=== PATIENT | female | born 1985 | race Hispanic/Latino ===

== ENCOUNTER 2019-04-21 21:08 | Emergency (ER) | payer SELFPAY ==
[2019-04-21 21:34] LABS: #Basophils 0.1 thou/uL (0.0-0.2); #Eosinphils 0.3 thou/uL (0.0-0.7); #Lymphocytes 2.7 thou/uL (1.20-3.40); #Monocytes 0.6 thou/uL (0.11-0.59); #Neutrophils 5.6 thou/uL (1.40-6.50); %Basophils 0.7 % (0.0-1.0); %Eosinophils 2.7 % (0.0-10.0); %Monocytes 6.6 % (0.0-10.0); %Neutrophils 60.9 % (42.0-75.0); Hemoglobin 14.3 g/dL (12.0-16.0); Mean Corpuscular HGB CONC 33.7 g/dL (32.0-36.0); Mean Corpuscular Hemoglobin 29.1 pg (27.0-31.0); Mean Corpuscular Volume 86.1 fL (78.0-98.0); Mean Platelet Volume 7.4 fL (7.4-10.4); Platelet Count 335 thou/uL (130-400); RBC Distribution Width 12.3 % (11.5-14.5); Red Blood Cell (RBC) Count 4.91 mill/uL (4.20-5.40); White Blood Cell (WBC) Count 9.2 thou/uL (4.8-10.8)
[2019-04-21 21:44] LABS: BHCG - Serum Negative (NEGATIVE); Pregs Control Background? CLEAR/WHITE (CLR/WHITE); Pregs Control Bar Appear? YES (CONTROL BAR)
[2019-04-21 21:59] LABS: ALT (SGPT) 61 U/L (8-55); AST (SGOT) 24 U/L (5-34); Albumin 4.5 g/dL (3.5-5.0); Alkaline Phosphatase 92 U/L (40-150); Anion Gap 13 mmol/L (10-20); BUN (Urea Nitrogen) 12 mg/dL (7.0-18.7); Bilirubin, Total 0.3 mg/dL (0.2-1.2); Calc. Creatinine Clearance 0 mL/min (70-130); Calcium 9.6 mg/dL (7.8-10.44); Carbon Dioxide 23 mmol/L (22-29); Chloride 106 mmol/L (98-107); Estimated GFR-MDRD 83; Glucose 128 mg/dL (70-105); Lipase 27 U/L (8-78); Potassium 3.5 mmol/L (3.5-5.1); Protein, Total 7.5 g/dL (6.0-8.3); Sodium 138 mmol/L (136-145)
[2019-04-21 21:59] LABS: Bilirubin Negative (Negative); Blood, Urine Negative (Negative); Clarity Clear (Clear); Glucose, Urine (Dipstick) Normal (Negative); Leukocyte Negative Leu/uL (Negative); Nitrite Negative (Negative); Protein, Urine (Dipstick) Negative (Neg-Trace); Urobilinogen Normal mg/dL (Less than 2)
== END 2019-04-21 22:25 | disposition home or self-care (01) ==
LOC: ERS 21:08
DX: R10.31 Right lower quadrant pain (principal)
CPT/HCPCS: 36415; 80053; 81003; 83690; 84703; 85025; 99284

== ENCOUNTER 2019-05-22 08:36 | Outpatient (CLI) | payer OTHER ==
--- NOTE | 2019-05-22 10:41 | ULT ---
TRANSABDOMINAL PELVIC ULTRASOUND WITH [place]-SCALE AND COLOR-FLOW AND SPECTRAL DOPPLER IMAGING: HISTORY: Infertility. FINDINGS: The uterus is retroverted, measuring 7 x 3.3 x 5.6 cm. The endometrium measures 1.8 cm in thickness. No uterine mass or endometrial fluid is seen. The right ovary measures 4 x 1.9 x 3 cm and the left ovary measures 3.6 x 2.7 x 2.6 cm. No adnexal ma ss is seen. There is flow demonstrated to both ovaries. No free fluid is noted. IMPRESSION: 1. Retroverted uterus. 2. Endometrial thickness is 1.8 cm. POS: OFF
== END 2019-05-22 08:37 | disposition home or self-care (01) ==
LOC: BICULT 08:36
DX: Z31.9 Encounter for procreative management, unspecified (principal); N85.4 Malposition of uterus
CPT/HCPCS: 76856; 93976

== ENCOUNTER 2019-11-09 15:15 | Outpatient (CLI) | payer OTHER ==
--- NOTE | 2019-11-09 17:03 | RAD ---
EXAM: XR Abdomen 1 View/KUB PROVIDED CLINICAL HISTORY: Right lower quadrant abdominal pain. COMPARISON: None FINDINGS: Upper abdomen is obscured from view. Bowel gas pattern is nonspecific with small amount of retained f ecal material seen throughout the colon. No suspicious calcifications are seen. Osseous structures have a normal appearance. IMPRESSION: Nonspecific bowel gas pattern.
== END 2019-11-09 15:16 | disposition home or self-care (01) ==
LOC: BICRAD 15:15
PROVIDERS: ATTEND Family Medicine
DX: R10.9 Unspecified abdominal pain (principal)
CPT/HCPCS: 74018

== ENCOUNTER 2020-06-11 17:16 | Emergency (ER) | payer OTHER, SELFPAY ==
[2020-06-12 12:57] LABS: SARS-CoV-2 MS2 Positive; SARS-CoV-2 N Gene Negative; SARS-CoV-2 S Gene Negative; SARS-CoV-2 by NAA Not Detected (NotDetected); SARS-CoV-2 orf1ab Negative
== END 2020-06-11 19:03 | disposition home or self-care (01) ==
LOC: ERS 17:16
DX: R51.9 Headache, unspecified (principal); R50.9 Fever, unspecified; Z20.828 Contact with and (suspected) exposure to other viral communicable diseases
CPT/HCPCS: 87635; 99283; U0003

== ENCOUNTER 2024-01-27 23:19 | Emergency (ER) | payer BC, SELFPAY ==
[2024-01-28 00:12] LABS: #Basophils 0.05 10x3/uL (0.0-0.2); %Basophils 0.5 % (0.0-1.0); %Eosinophils 2.5 % (0.0-10.0); %Lymphocytes 26.4 % (21.0-51.0); %Monocytes 7.2 % (0.0-10.0); %Neutrophils 63.1 % (42.0-75.0); Hematocrit 43.4 % (36.0-47.0); Hemoglobin 14.8 g/dL (12.0-16.0); Mean Corpuscular HGB CONC 34.1 g/dL (32.0-36.0); Mean Corpuscular Hemoglobin 29.3 pg (27.0-31.0); Mean Corpuscular Volume 85.9 fL (78.0-98.0); Platelet Count 353 10x3/uL (130-400); RBC Distribution Width 13.2 % (11.5-14.5); Red Blood Cell (RBC) Count 5.05 mill/uL (4.20-5.40)
[2024-01-28 00:31] LABS: ALT (SGPT) 55 U/L (8-55); AST (SGOT) 29 U/L (5-34); Albumin 4.3 g/dL (3.5-5.0); Alkaline Phosphatase 108 U/L (40-110); Anion Gap 14 mmol/L (10-20); BUN (Urea Nitrogen) 11 mg/dL (7.0-18.7); Bilirubin, Total 0.2 mg/dL (0.2-1.2); Calc. Creatinine Clearance 0 mL/min (70-130); Carbon Dioxide 24 mmol/L (22-29); Chloride 107 mmol/L (98-107); Estimated GFR 107; Globulin 3.8 g/dL (2.4-3.5); Glucose 117 mg/dL (70-105); Lipase 38 U/L (8-78); Potassium 3.8 mmol/L (3.5-5.1); Protein, Total 8.1 g/dL (6.0-8.3); Sodium 141 mmol/L (136-145)
[2024-01-28 00:33] LABS: Troponin I Less than 0.010 ng/mL (< 0.028)
[2024-01-28 00:35] LABS: BHCG - Serum Negative (NEGATIVE); Pregs Control Background? CLEAR/WHITE (CLR/WHITE); Pregs Control Bar Appear? YES (CONTROL BAR)
[2024-01-28] MEDS ORDERED: Ketorolac Tromethamine 30 MG (1 mL) VIAL ONE (02:18)
[2024-01-28] MEDS ORDERED: Iopamidol-370 76% 500 ML MDV (1 ML CHARGE) ONE (11:12)
== END 2024-01-28 04:00 | disposition home or self-care (01) ==
LOC: ERS 23:19
DX: R07.9 Chest pain, unspecified (principal)
CPT/HCPCS: 36415; 71045; 71275; 80053; 83690; 84484; 84703; 85025; 85379; 93005; 96374; J1885; Q9967